=== PATIENT | female | born 1960 | race Caucasian/White ===

== ENCOUNTER 2017-12-29 13:42 | Emergency (ER) | payer SELFPAY ==
[2017-12-29] MEDS ORDERED: HYDROCODONE/APAP 5/325MG TABLET PO ONE (14:29)
[2017-12-29] MEDS ORDERED: CEFAZOLIN 1 Gram 1 GM/50 ML BAG IVPB ONE (15:32)
[2017-12-29] MEDS ORDERED: MORPHINE SULFATE 10 MG/ML VIAL IVP ONE (15:50)
[2017-12-29] MEDS ORDERED: Diph,Pert(Acell),Tet Vac 0.5 ML SYR IM ONE (17:56)
--- NOTE | 2017-12-29 17:59 | Emergency Department Record ---
History of Present Illness - General Chief Complaint: Laceration(s) Stated Complaint: LACERATION TO FINGERS ON RT HAND Time Seen by Provider: 12/29/17 14:22 Source: Patient Mode of Arrival: Ambulatory Limitations: No limitations - History of Present Illness Initial Commments: pt got hr hand caught in a metal machine avulsing and lacerating the 2nd and 3rd dips.. Onset/Timin -: Minutes(s) Extremity Location: Right: Hand Place: Work Context: Accidental Associated Symptoms: Pain Treatments Prior to Arrival: Bandage - Dustin Coma Scale Eye Response: (4) Open spontaneously Motor Response: (6) Obeys commands Verbal Response: (5) Oriented Dustin Total: 15 - Related Data Patient Tetanus UTD (within 5 yrs): No Previous Rx's Medication Instructions Recorded Cephalexin [Keflex] 500 mg PO TID #20 cap 12/29/17 Allergies Allergy/AdvReac Type Severity Reaction Status Date / Time duloxetine HCl Allergy ALTERED Verified 12/29/17 14:07 [From Cymbalta] MENTAL STATUS pregabalin [From Lyrica] Allergy ALTERED Verified 12/29/17 14:07 MENTAL STATUS Travel Screening - Travel/Exposure Within Last 30 Days Have you traveled within the last 30 days?: No - Travel/Exposure Within Last Year Have you traveled outside the [place] in the last year?: No - Additonal Travel Details Have you been exposed to anyone with a communicable illness?: No - Travel Symptoms Symptom Screening: None Review of Systems Reviewed: No additional complaints except as noted below Constitutional: Reports: As per HPI. Denies: Chills, Fever, Malaise, Night sweats, Weakness, Weight change Eyes: Reports: As per HPI. Denies: Eye discharge, Eye pain, Photophobia, Vision change ENT: Reports: As per HPI. Denies: Congestion, Dental pain, Ear pain, Epistaxis , Hearing loss, Throat pain Respiratory: Reports: As per HPI. Denies: Cough, Dyspnea, Hemoptysis, Stridor, Wheezes Cardiovascular: Reports: As per HPI. Denies: Arrhythmia, Chest pain, Dyspnea on exertion, Edema, Murmurs, Orthopnea, Palpitations, Paroxysmal nocturnal dyspnea, Rheumatic Fever, Syncope Endocrine: Reports: As per HPI. Denies: Fatigue, Heat or cold intolerance, Polydipsia, Polyuria Gastrointestinal: Reports: As per HPI. Denies: Abdominal pain, Constipation, Diarrhea, Hematemesis, Hematochezia, Melena, Nausea, Vomiting Genitourinary: Reports: As per HPI. Denies: Abnormal menses, Discharge, Dyspareunia, Dysuria, Frequency, Hematuria, Incontinence, Retention, Urgency Musculoskeletal: Reports: As per HPI. Denies: Arthralgia, Back pain, Gout, Joint swelling, Myalgia, Neck pain Skin: Reports: As per HPI. Denies: Bruising, Change in color, Change in hair/ nails, Lesions, Pruritus, Rash Neurological: Reports: As per HPI. Denies: Abnormal gait, Confusion, Headache, Numbness, Paresthesias, Seizure, Tingling, Tremors, Vertigo, Weakness Psychiatric: Reports: As per HPI. Denies: Anxiety, Auditory hallucinations, Depression, Homicidal thoughts, Suicidal thoughts, Visual hallucinations Hematological/Lymphatic: Reports: As per HPI. Denies: Anemia, Blood Clots, Easy bleeding, Easy bruising, Swollen glands Past Medical History - SOCIAL HISTORY Smoking Status: Former smoker Alcohol Use: None Drug Use: None - RESPIRATORY Hx Respiratory Disorders: Yes Hx Asthma: Yes Hx COPD: Yes - CARDIOVASCULAR Hx Cardio Disorders: No - NEURO Hx Neuro Disorders: No - GI Hx GI Disorders: Yes Hx Reflux: Yes - Hx Genitourinary Disorders: No - ENDOCRINE Hx Endocrine Disorders: Yes Hx Thyroid Disease: Yes - MUSCULOSKELETAL Hx Musculoskeletal Disorders: Yes Hx Arthritis: Yes (Rheumatoid) Hx Back Injury: Yes Comment:: Slipped Disc - PSYCH Hx Psych Problems: Yes Hx Anxiety: Yes - HEMATOLOGY/ONCOLOGY Hx Hematology/Oncology Disorders: No Family Medical History Any Significant Family History?: Yes Family Hx Comment (NOT TO BE USED IN PLACE OF ITEMS BELOW): Brain aneurysm with sister Hx Cancer: Father, Mother, Grandparents Hx Diabetes: Father, Grandparents Hx Heart Disease: Father Hx HTN: Father, Mother, Brother/Sister Hx Kidney Disease: Mother Physical Exam - General General Appearance: Alert, Oriented x3, Cooperative, Mild distress - Head Head exam: Normal inspection - Eye Eye exam: Normal appearance, PERRL, EOMI Pupils: Normal accommodation - ENT ENT exam: Normal exam, Mucous membranes moist, Normal external ear exam, Normal orophraynx Ear exam: Normal external inspection. negative: External canal tenderness Nasal Exam: Normal inspection. negative: Discharge, Sinus tenderness Mouth exam: Normal external inspection, Tongue normal Teeth exam: Normal inspection. negative: Dental caries Throat exam: Normal inspection. negative: Tonsillar erythema, Tonsillar exudate - Neck Neck exam: Normal inspection, Full ROM. negative: Tenderness - Respiratory Respiratory exam: Normal lung sounds bilaterally. negative: Respiratory distress - Cardiovascular Cardiovascular Exam: Regular rate, Normal rhythm, Normal heart sounds - GI/Abdominal GI/Abdominal exam: Soft, Normal bowel sounds. negative: Tenderness - Rectal Rectal exam: Deferred - exam: Deferred - Extremities Extremities exam: Normal inspection, Full ROM, Normal capillary refill. negative: Tenderness Image of Hand: 1 - u shaped laceration 2 - partial avulsion of tuft - Back Back exam: Reports: Normal inspection, Full ROM. Denies: Muscle spasm, Rash noted, Tenderness - Neurological Neurological exam: Alert, CN II-XII intact, Normal gait, Oriented X3 - Psychiatric Psychiatric exam: Normal affect, Normal mood - Skin Skin exam: Dry, Intact, Normal color, Warm Type of lesion: Laceration Distribution of rash: RUE Course Vital Signs 12/29/17 12/29/17 14:06 16:47 Temperature 98.3 F Pulse Rate 85 Pulse Rate [ 84 Pulse Ox Probe] Respiratory 18 18 Rate Blood Pressure 160/119 Blood Pressure 181/84 [Left Arm] Pulse Ox 98 99 - Reevaluation(s) Reevaluation #1: 12/29/17 19:11 d/w dr jordan Disposition Disposition: Discharge Clinical Impression: Laceration of finger Qualifiers: Encounter type: initial encounter Finger: index finger Damage to nail status: with damage Foreign body presence: without foreign body Laterality: right Qualified Code(s): S61.310A - Laceration without foreign body of right index finger with damage to nail, initial encounter Avulsion, finger tip Qualifiers: Encounter type: initial encounter Qualified Code(s): S61.209A - Unspecified open wound of unspecified finger without damage to nail, initial encounter Hypertension Qualifiers: Hypertension type: unspecified Qualified Code(s): I10 - Essential (primary) hypertension Disposition: Home, Self-Care Condition: (1) Good Instructions: Laceration (ED), Skin Avulsion (ED), Care For Your Stitches (ED) Additional Instructions: follow up with dr jordan on monday. return sooner if worse. keep elevated. recheck blood pressure in next 2 days and follow up with family doctor.regarding pressure Prescriptions: Cephalexin [Keflex] 500 mg PO TID #20 cap Referrals: PERRY JORDAN M.D. [MEDICAL DOCTOR] - Forms: Patient Portal Access Quality - Quality Measures Quality Measures: N/A - Blood Pressure Screening Does Patient Have Any of the Following: No Blood Pressure Classification: Hypertensive Reading Systolic Measurement: 160 Diastolic Measurement: 119 Screening for High Blood Pressure: < First Hypertensive BP, F/U Documented > [ G8950] First Hypertensive Follow-up Interventions: Follow-up with rescreen GT 1 day and LT 4 weeks. Laceration - Other - Time Out Informed consent:: Informed consent obtained Confirmed first & last name, , procedure, correct site?: Yes Start Date:: 12/29/17 Start Time:: 18:07 - Location Location of laceration:: Right Laceration digit detail:: 2nd Length of laceration:: 5 Length of laceration:: cm - Clean and Prep Laceration cleaning method:: Cleansed Laceration cleaning agent:: Normal Saline - Local Anesthetic Lidocaine used:: 1% Lidocaine dose:: 2 mL - Procedural Detail Tissue detail:: Crushed, Devitalized Skin suture pattern:: Interrupted Suture material/size:: 5-0: Prolene, Nylon Number of skin sutures:: 12 Neurovascular intact?: No (limited circulation to partially avulsed tuft) - Post Procedural Detail Complications:: Yes (as above, good approximation) Procedure Tolerated by Patient:: Well Laceration - Other - Time Out Informed consent:: Informed consent obtained Confirmed first & last name, , procedure, correct site?: Yes Start Date:: 12/29/17 Start Time:: 18:15 - Location Location of laceration:: Right Laceration located on:: Finger Laceration digit detail:: 3rd Length of laceration:: 10 (avulsion of tuft) Length of laceration:: cm - Clean and Prep Laceration cleaning method:: Cleansed, Copious Irrigation Laceration cleaning agent:: Normal Saline - Local Anesthetic Lidocaine used:: 1% Lidocaine dose:: 2 mL - Medication Medicated for procedure?: Yes Medication(s) administered:: Hydromorphine - Procedural Detail Tissue detail:: Crushed, Devitalized, Debridement Foreign body in the wound?: No Undermining was preformed?: No Stent applied?: No Neurovascular intact?: No - Post Procedural Detail Complications:: Yes (avulsion of tuft) Procedure Tolerated by Patient:: Well
[2017-12-29] MEDS ORDERED: THROMBIN/GELATIN FOAM HEMOSTAT (THROMBI-GEL) TP ONE (18:11)
--- NOTE | 2017-12-30 21:41 | RADIOLOGY REPORT ---
EXAM: HAND, RIGHT 3 VIEWS HISTORY: TRAUMATIC INJURY OF THE HAND, CAUGHT IN MACHINERY. TECHNIQUE: Three views of the right hand. COMPARISON: None. FINDINGS: Examination is limited by patient positioning, overlapping of the distal fingers, and superimposed wound dressing material. There is suggestion of osseous deformity involving the tuft of the long finger distal phalanx with overlying soft tissue injury/loss. Otherwise, no definite fracture or evidence of direct osseous injury. No dislocation. No definite radiopaque foreign body is detected. IMPRESSION: 1. LIMITED EXAMINATION, DETAILED ABOVE. 2. SUGGESTION OF OSSEOUS AND SOFT TISSUE INJURY INVOLVING THE TIP OF THE LONG FINGER. JOB NUMBER: [id number] MTDD
--- NOTE | 2017-12-31 10:52 | RADIOLOGY REPORT ---
DATE: 12/29/2017 at 1819 hours. EXAM: RIGHT HAND, THREE VIEWS. HISTORY: Laceration to fingertips. TECHNIQUE: Three views of the right hand. COMPARISON: Same-day three views of the right hand obtained at 1453 hours. FINDINGS: There is diffuse osteopenia. There is redemonstration of soft tissue deformity of the distal aspect of the third digit. On the lateral view, there is evidence of absence of a portion of the third distal phalanx tuft. No suspicious foreign body. On the lateral view there is mild cortical irregularity of the posterior margin of the second distal phalanx tuft. This may be chronic. Injury is less likely. Osteoarthritic changes again noted scattered throughout the hand, mild in degree. IMPRESSION: 1. SOFT TISSUE DEFORMITY OF THE TIP OF THE THIRD DIGIT. ON THE LATERAL VIEW THERE IS ABSENCE OF THE TIP OF THE THIRD DISTAL PHALANX TUFT. NO FOREIGN BODY. 2. FOCAL IRREGULARITY OF THE POSTERIOR CORTEX OF THE SECOND DISTAL PHALANX TUFT ON THE LATERAL VIEW. THIS MAY BE CHRONIC, THOUGH ACUTE INJURY CANNOT BE ENTIRELY EXCLUDED. JOB NUMBER: [id number] [facility]
== END 2017-12-29 19:28 | disposition home or self-care (01) ==
LOC: ER 13:42
DX: S61.310A Laceration without foreign body of right index finger with damage to nail, initial encounter (principal); S61.212A Laceration without foreign body of right middle finger without damage to nail, initial encounter; W31.89XA Contact with other specified machinery, initial encounter; Y92.63 Factory as the place of occurrence of the external cause; Y99.0 Civilian activity done for income or pay; J44.9 Chronic obstructive pulmonary disease, unspecified; I10 Essential (primary) hypertension; Z87.891 Personal history of nicotine dependence
CPT/HCPCS: 12055 ×2; 99284 ×2; 96372; 96365; 96375; 73130; J0690; J2270; 90715

== ENCOUNTER 2017-12-31 11:00 | Emergency (ER) | payer SELFPAY ==
[2017-12-31] MEDS ORDERED: ONDANSETRON HCL IV 4 MG/2 ML VIAL IM ONE (11:15)
[2017-12-31] MEDS ORDERED: HYDROMORPHONE HCL 2 MG/ML VIAL IM ONE (11:15)
--- NOTE | 2017-12-31 11:21 | Emergency Department Record ---
History of Present Illness - General Chief Complaint: Wound, check Stated Complaint: RE-CHECK FINGER Time Seen by Provider: 12/31/17 11:06 Source: Patient Mode of arrival: Ambulatory Limitations: No limitations - History of Present Illness Initial Comments: pt here for a recheck MD Complaint: Wound re-check Onset/Timin -: Days(s) Returns Today for: Wound recheck Symptoms Since Prior Visit: No new symptoms Associated Symptoms: None - Related Data Previous Rx's Medication Instructions Recorded Cephalexin [Keflex] 500 mg PO TID #20 cap 12/29/17 Hydrocodone/Acetaminophen [[place] 1 each PO Q6HR #10 tablet 12/31/17 5-325 Tablet] Allergies Allergy/AdvReac Type Severity Reaction Status Date / Time duloxetine HCl Allergy ALTERED Verified 12/29/17 14:07 [From Cymbalta] MENTAL STATUS pregabalin [From Lyrica] Allergy ALTERED Verified 12/29/17 14:07 MENTAL STATUS Travel Screening - Travel/Exposure Within Last 30 Days Have you traveled within the last 30 days?: No - Travel/Exposure Within Last Year Have you traveled outside the [place] in the last year?: No - Additonal Travel Details Have you been exposed to anyone with a communicable illness?: No - Travel Symptoms Symptom Screening: None Review of Systems Reviewed: No additional complaints except as noted below Constitutional: Reports: As per HPI. Denies: Chills, Fever, Malaise, Night sweats, Weakness, Weight change Eyes: Reports: As per HPI. Denies: Eye discharge, Eye pain, Photophobia, Vision change ENT: Reports: As per HPI. Denies: Congestion, Dental pain, Ear pain, Epistaxis , Hearing loss, Throat pain Respiratory: Reports: As per HPI. Denies: Cough, Dyspnea, Hemoptysis, Stridor, Wheezes Cardiovascular: Reports: As per HPI. Denies: Arrhythmia, Chest pain, Dyspnea on exertion, Edema, Murmurs, Orthopnea, Palpitations, Paroxysmal nocturnal dyspnea, Rheumatic Fever, Syncope Endocrine: Reports: As per HPI. Denies: Fatigue, Heat or cold intolerance, Polydipsia, Polyuria Gastrointestinal: Reports: As per HPI. Denies: Abdominal pain, Constipation, Diarrhea, Hematemesis, Hematochezia, Melena, Nausea, Vomiting Genitourinary: Reports: As per HPI. Denies: Abnormal menses, Discharge, Dyspareunia, Dysuria, Frequency, Hematuria, Incontinence, Retention, Urgency Musculoskeletal: Reports: As per HPI. Denies: Arthralgia, Back pain, Gout, Joint swelling, Myalgia, Neck pain Skin: Reports: As per HPI. Denies: Bruising, Change in color, Change in hair/ nails, Lesions, Pruritus, Rash Neurological: Reports: As per HPI. Denies: Abnormal gait, Confusion, Headache, Numbness, Paresthesias, Seizure, Tingling, Tremors, Vertigo, Weakness Psychiatric: Reports: As per HPI. Denies: Anxiety, Auditory hallucinations, Depression, Homicidal thoughts, Suicidal thoughts, Visual hallucinations Hematological/Lymphatic: Reports: As per HPI. Denies: Anemia, Blood Clots, Easy bleeding, Easy bruising, Swollen glands Past Medical History - SOCIAL HISTORY Smoking Status: Former smoker Alcohol Use: None Drug Use: None - RESPIRATORY Hx Respiratory Disorders: Yes Hx Asthma: Yes Hx COPD: Yes - CARDIOVASCULAR Hx Cardio Disorders: No - NEURO Hx Neuro Disorders: No - GI Hx GI Disorders: Yes Hx Reflux: Yes - Hx Genitourinary Disorders: No - ENDOCRINE Hx Endocrine Disorders: Yes Hx Thyroid Disease: Yes - MUSCULOSKELETAL Hx Musculoskeletal Disorders: Yes Hx Arthritis: Yes (Rheumatoid) Hx Back Injury: Yes Comment:: Slipped Disc - PSYCH Hx Psych Problems: Yes Hx Anxiety: Yes - HEMATOLOGY/ONCOLOGY Hx Hematology/Oncology Disorders: No Family Medical History Any Significant Family History?: No Family Hx Comment (NOT TO BE USED IN PLACE OF ITEMS BELOW): Brain aneurysm with sister Hx Cancer: Father, Mother, Grandparents Hx Diabetes: Father, Grandparents Hx Heart Disease: Father Hx HTN: Father, Mother, Brother/Sister Hx Kidney Disease: Mother Physical Exam - General General Appearance: Alert, Oriented x3, Cooperative, Mild distress - Head Head exam: Normal inspection - Eye Eye exam: Normal appearance, PERRL, EOMI Pupils: Normal accommodation - ENT ENT exam: Normal exam, Mucous membranes moist, Normal external ear exam, Normal orophraynx Ear exam: Normal external inspection. negative: External canal tenderness Nasal Exam: Normal inspection. negative: Discharge, Sinus tenderness Mouth exam: Normal external inspection, Tongue normal Teeth exam: Normal inspection. negative: Dental caries Throat exam: Normal inspection. negative: Tonsillar erythema, Tonsillar exudate - Neck Neck exam: Normal inspection, Full ROM. negative: Tenderness - Respiratory Respiratory exam: Normal lung sounds bilaterally. negative: Respiratory distress - Cardiovascular Cardiovascular Exam: Regular rate, Normal rhythm, Normal heart sounds - GI/Abdominal GI/Abdominal exam: Soft, Normal bowel sounds. negative: Tenderness - Rectal Rectal exam: Deferred - exam: Deferred - Extremities Extremities exam: Normal inspection, Full ROM, Normal capillary refill. negative: Tenderness - Back Back exam: Reports: Normal inspection, Full ROM. Denies: Muscle spasm, Rash noted, Tenderness - Neurological Neurological exam: Alert, CN II-XII intact, Normal gait, Oriented X3 - Psychiatric Psychiatric exam: Normal affect, Normal mood - Skin Skin exam: Dry, Intact, Normal color, Warm Type of lesion: Laceration, Other (laceration of index finger and avulsion of tuft of middle finger showing no signs of infection.) Course Vital Signs 12/31/17 11:03 Temperature 97.8 F Pulse Rate 76 Respiratory 20 Rate Blood Pressure 132/71 Pulse Ox 98 Disposition Disposition: Discharge Clinical Impression: Laceration re-check Disposition: Home, Self-Care Condition: (1) Good Instructions: Wound Healing and Your Diet (ED) Additional Instructions: follow up tomorrow with dr jordan Prescriptions: Hydrocodone/Acetaminophen [Brilliant 5-325 Tablet] 1 each PO Q6HR #10 tablet Referrals: PERRY JORDAN M.D. [MEDICAL DOCTOR] - Quality - Quality Measures Quality Measures: N/A - Blood Pressure Screening Does Patient Have Any of the Following: No Blood Pressure Classification: Pre-Hypertensive BP Reading Systolic Measurement: 132 Diastolic Measurement: 71 Screening for High Blood Pressure: < Pre-Hypertensive BP, F/U Documented > [ G8950] Pre-Hypertensive Follow-up Interventions: Follow-up with rescreen every year.
== END 2017-12-31 11:59 | disposition home or self-care (01) ==
LOC: ER 11:00
DX: Z48.00 Encounter for change or removal of nonsurgical wound dressing (principal); S61.310A Laceration without foreign body of right index finger with damage to nail, initial encounter; S61.212A Laceration without foreign body of right middle finger without damage to nail, initial encounter; J44.9 Chronic obstructive pulmonary disease, unspecified; Z87.891 Personal history of nicotine dependence; W31.89XA Contact with other specified machinery, initial encounter; Y92.63 Factory as the place of occurrence of the external cause; Y99.0 Civilian activity done for income or pay
CPT/HCPCS: 99283 ×2; 96372; J2405; J1170

== ENCOUNTER 2018-04-25 14:57 | Emergency (ER) | payer SELFPAY ==
--- NOTE | 2018-04-25 15:22 | Emergency Department Record ---
History of Present Illness - General Chief complaint: Cold Stated complaint: TARIQ Time Seen by Provider: 04/25/18 15:13 Source: Patient Mode of Arrival: Ambulatory Limitations: No limitations - History of Present Illness Initial comments: The patient is here due to a cough and congestion for 2-3 weeks. She does have intermittent sputum production with the cough. There is mild SOB like her asthma but she is out of her inhaller. There has been no fever, chills, CP, or back pain. MD complaint: Other Onset/Timin -: Week(s) - Related Data Previous Rx's Medication Instructions Recorded Hydrocodone/Acetaminophen [[place] 1 each PO Q6HR #10 tablet 12/31/17 5-325 Tablet] Albuterol Sulfate [Proair Hfa] 2 puff IH QID PRN #1 inhaler 04/25/18 Doxycycline Monohydrate [Mondoxyne 100 mg PO BID #14 capsule 04/25/18 Nl] Allergies Allergy/AdvReac Type Severity Reaction Status Date / Time duloxetine HCl Allergy ALTERED Verified 04/25/18 15:11 [From Cymbalta] MENTAL STATUS pregabalin [From Lyrica] Allergy ALTERED Verified 04/25/18 15:11 MENTAL STATUS Travel Screening - Travel/Exposure Within Last 30 Days Have you traveled within the last 30 days?: No - Travel/Exposure Within Last Year Have you traveled outside the [place] in the last year?: No - Additonal Travel Details Have you been exposed to anyone with a communicable illness?: No - Travel Symptoms Symptom Screening: None Review of Systems Constitutional: Denies: Chills, Fever Eyes: Denies: Eye discharge ENT: Denies: Congestion Respiratory: Denies: Cough, Dyspnea Past Medical History - SOCIAL HISTORY Smoking Status: Former smoker Alcohol Use: Rare Drug Use: None - RESPIRATORY Hx Respiratory Disorders: Yes Hx Asthma: Yes Hx COPD: Yes - CARDIOVASCULAR Hx Cardio Disorders: No - NEURO Hx Neuro Disorders: No - GI Hx GI Disorders: Yes Hx Reflux: Yes - Hx Genitourinary Disorders: No - ENDOCRINE Hx Endocrine Disorders: Yes Hx Thyroid Disease: Yes - MUSCULOSKELETAL Hx Musculoskeletal Disorders: Yes Hx Arthritis: Yes (Rheumatoid) Hx Back Injury: Yes Comment:: Slipped Disc - PSYCH Hx Psych Problems: Yes Hx Anxiety: Yes - HEMATOLOGY/ONCOLOGY Hx Hematology/Oncology Disorders: No Family Medical History Any Significant Family History?: Yes Family Hx Comment (NOT TO BE USED IN PLACE OF ITEMS BELOW): Brain aneurysm with sister Hx Cancer: Father, Mother, Grandparents Hx Diabetes: Father, Grandparents Hx Heart Disease: Father Hx HTN: Father, Mother, Brother/Sister Hx Kidney Disease: Mother Physical Exam - General General Appearance: Alert, Oriented x3, Cooperative, No acute distress - Head Head exam: Atraumatic, Normocephalic, Normal inspection - Eye Eye exam: Normal appearance, PERRL, EOMI - ENT Throat exam: Normal inspection. negative: Tonsillar erythema, Tonsillar exudate - Neck Neck exam: Normal inspection, Full ROM. negative: Tenderness - Respiratory Respiratory exam: Normal lung sounds bilaterally. negative: Accessory muscle use, Chest wall tenderness, Rales, Respiratory distress, Rhonchi, Stridor - Cardiovascular Cardiovascular Exam: Regular rate, Normal rhythm, Normal heart sounds - GI/Abdominal GI/Abdominal exam: Soft, Normal bowel sounds. negative: Tenderness - Neurological Neurological exam: Alert, Normal gait. negative: Abnormal gait, Motor sensory deficit Course Vital Signs 04/25/18 15:13 Temperature 97.8 F Pulse Rate 71 Respiratory 20 Rate Blood Pressure 142/65 Pulse Ox 96 - Reevaluation(s) Reevaluation #1: I did explain to the patient the need for an inhaller and oral Abx. She is to see her PCP if not better in 4-5 days. 04/25/18 15:24 Disposition Disposition: Discharge Clinical Impression: Bronchitis Disposition: Home, Self-Care Condition: (2) Stable Instructions: Acute Bronchitis (ED) Additional Instructions: Please take the Doxycycline and Albuterol as directed. Please see your family doctor next week if not better. Return to the ER for any worsening cough, any fever, SOB or TARIQ. Prescriptions: Albuterol Sulfate [Proair Hfa] 2 puff IH QID PRN #1 inhaler PRN Reason: Cough And Difficulty Breathing Doxycycline Monohydrate [Mondoxyne Nl] 100 mg PO BID #14 capsule Forms: Patient Portal Access Time of Disposition: 15:22 Quality - Quality Measures Quality Measures: N/A - Blood Pressure Screening View Details: Yes Does Patient Have Any of the Following: No Blood Pressure Classification: Hypertensive Reading Systolic Measurement: 142 Diastolic Measurement: 65 Screening for High Blood Pressure: < Pre-Hypertensive BP, F/U Documented > [ G8950] Pre-Hypertensive Follow-up Interventions: Referral to alternative/primary care provider.
== END 2018-04-25 15:27 | disposition home or self-care (01) ==
LOC: ER 14:57
DX: J20.9 Acute bronchitis, unspecified (principal); R06.02 Shortness of breath
CPT/HCPCS: 99282

== ENCOUNTER 2018-05-15 14:56 | Emergency (ER) | payer MEDICAID ==
--- NOTE | 2018-05-15 15:30 | Emergency Department Record ---
History of Present Illness - General Chief complaint: Dental Stated complaint: ABCESS TOOTH Time Seen by Provider: 05/15/18 15:25 Source: Patient Mode of Arrival: Ambulatory Limitations: No limitations - History of Present Illness Initial comments: Pt with recurrent "abscess" to tooth. Has never had a dentist due to lack of insurance. No fever, no difficult swallowing. No DM. Several missing teeth. Mild swelling to left lower jaw. MD complaint: Tooth pain Onset/Timin -: Days(s) Location: Tooth # Severity: Moderate Quality: Aching, Burning Consistency: Constant - Related Data Previous Rx's Medication Instructions Recorded Hydrocodone/Acetaminophen [[place] 1 each PO Q6HR #10 tablet 12/31/17 5-325 Tablet] Albuterol Sulfate [Proair Hfa] 2 puff IH QID PRN #1 inhaler 04/25/18 Ibuprofen [Motrin] 800 mg PO Q8H PRN 6 Days #40 tab 05/15/18 Penicillin V Potassium 1,000 mg PO BID 10 Days #40 tablet 05/15/18 Allergies Allergy/AdvReac Type Severity Reaction Status Date / Time duloxetine HCl Allergy ALTERED Verified 05/15/18 15:05 [From Cymbalta] MENTAL STATUS pregabalin [From Lyrica] Allergy ALTERED Verified 05/15/18 15:05 MENTAL STATUS Travel Screening - Travel/Exposure Within Last 30 Days Have you traveled within the last 30 days?: No - Travel/Exposure Within Last Year Have you traveled outside the [place] in the last year?: No - Additonal Travel Details Have you been exposed to anyone with a communicable illness?: No - Travel Symptoms Symptom Screening: None Review of Systems Constitutional: Denies: Chills, Fever, Night sweats, Weakness Eyes: Denies: Eye discharge, Photophobia ENT: Reports: As per HPI, Dental pain. Denies: Congestion, Ear pain Respiratory: Denies: Cough, Dyspnea, Hemoptysis Cardiovascular: Denies: Arrhythmia, Chest pain Endocrine: Denies: Fatigue Gastrointestinal: Denies: Abdominal pain Musculoskeletal: Denies: Arthralgia Skin: Denies: Bruising, Rash Neurological: Denies: Abnormal gait, Headache, Tingling Psychiatric: Denies: Anxiety Hematological/Lymphatic: Denies: Anemia Past Medical History - SOCIAL HISTORY Smoking Status: Former smoker Alcohol Use: None Drug Use: None - RESPIRATORY Hx Respiratory Disorders: Yes Hx Asthma: Yes Hx COPD: Yes - CARDIOVASCULAR Hx Cardio Disorders: No - NEURO Hx Neuro Disorders: No - GI Hx GI Disorders: Yes Hx Reflux: Yes - Hx Genitourinary Disorders: No - ENDOCRINE Hx Endocrine Disorders: Yes Hx Thyroid Disease: Yes - MUSCULOSKELETAL Hx Musculoskeletal Disorders: Yes Hx Arthritis: Yes (Rheumatoid) Hx Back Injury: Yes Comment:: Slipped Disc - PSYCH Hx Psych Problems: Yes Hx Anxiety: Yes - HEMATOLOGY/ONCOLOGY Hx Hematology/Oncology Disorders: No Family Medical History Any Significant Family History?: Yes Family Hx Comment (NOT TO BE USED IN PLACE OF ITEMS BELOW): Brain aneurysm with sister Hx Cancer: Father, Mother, Grandparents Hx Diabetes: Father, Grandparents Hx Heart Disease: Father Hx HTN: Father, Mother, Brother/Sister Hx Kidney Disease: Mother Physical Exam - General General Appearance: Alert, Oriented x3, Cooperative, Mild distress - Head Head exam: Atraumatic - Eye Eye exam: Normal appearance, PERRL - ENT Ear exam: Normal external inspection. negative: External canal tenderness Nasal Exam: Normal inspection. negative: Discharge, Sinus tenderness Mouth exam: Tongue normal. negative: Drooling, Laceration, Muffled voice, Tongue elevation Teeth exam: Dental caries (multiple missing and fractured teeth. Lower gums at #20/21 with erythema and swelling/sullness. No drainage. ) Throat exam: Normal inspection - Neck Neck exam: Normal inspection, Full ROM. negative: Lymphadenopathy, Meningismus , Tenderness - Respiratory Respiratory exam: Normal lung sounds bilaterally. negative: Rhonchi, Wheezes - Cardiovascular Cardiovascular Exam: Regular rate, Normal rhythm. negative: Tachycardia - GI/Abdominal GI/Abdominal exam: Soft, Normal bowel sounds. negative: Tenderness - Extremities Extremities exam: Normal inspection - Back Back exam: Reports: Normal inspection - Neurological Neurological exam: Alert, Normal gait, Oriented X3 - Psychiatric Psychiatric exam: Normal affect - Skin Skin exam: Normal color Course Vital Signs 05/15/18 15:00 Temperature 97.6 F Pulse Rate 71 Respiratory 18 Rate Blood Pressure 166/93 Pulse Ox 98 - Reevaluation(s) Reevaluation #1: 05/15/18 15:36 seen and exam. Plan for AB and dds referral. Disposition Disposition: Discharge Clinical Impression: Dental abscess Disposition: Home, Self-Care Condition: (1) Good Instructions: Dental Abscess (ED), Warm Compress or Soak (ED) Additional Instructions: Call Medicaid dentist for appointment. Prescriptions: Ibuprofen [Motrin] 800 mg PO Q8H PRN 6 Days #40 tab PRN Reason: Pain - Moderate (5-7) Penicillin V Potassium 1,000 mg PO BID 10 Days #40 tablet Quality - Quality Measures Quality Measures: N/A - Blood Pressure Screening Does Patient Have Any of the Following: No Blood Pressure Classification: Hypertensive Reading Systolic Measurement: 166 Diastolic Measurement: 93 Screening for High Blood Pressure: < Pre-Hypertensive BP, F/U Documented > [ G8950] Pre-Hypertensive Follow-up Interventions: Follow-up with rescreen every year.
== END 2018-05-15 15:42 | disposition home or self-care (01) ==
LOC: ER 14:56
DX: K04.7 Periapical abscess without sinus (principal); Z87.891 Personal history of nicotine dependence
CPT/HCPCS: 99282

== ENCOUNTER 2019-03-24 15:09 | Emergency (ER) | payer MEDICAID ==
--- NOTE | 2019-03-24 16:30 | Emergency Department Record ---
History of Present Illness - General Chief complaint: Dental Stated complaint: DENTAL PAIN Time Seen by Provider: 03/24/19 16:25 Source: Patient, RN notes reviewed Mode of Arrival: Ambulatory - History of Present Illness Initial comments: dental pain and getting her teeth removed in three weeks and wants antibiotics Onset/Timin -: Days(s) Severity: Severe Severity scale (1-10): 10 Quality: Sharp Consistency: Constant Improves with: None Worsens with: None Context- Dental: History of dental caries, Poor dental care - Related Data Previous Rx's Medication Instructions Recorded Hydrocodone/Acetaminophen [[place] 1 each PO Q6HR #10 tablet 12/31/17 5-325 Tablet] Amoxicillin/Potassium Clav 1 each PO TID #30 tablet 03/24/19 [Augmentin 500-125 Tablet] Allergies Allergy/AdvReac Type Severity Reaction Status Date / Time duloxetine HCl Allergy ALTERED Verified 01/26/19 12:54 [From Cymbalta] MENTAL STATUS pregabalin [From Lyrica] Allergy ALTERED Verified 01/26/19 12:54 MENTAL STATUS Travel Screening - Travel/Exposure Within Last 30 Days Have you traveled within the last 30 days?: No Review of Systems Reviewed: No additional complaints except as noted below Constitutional: Reports: As per HPI. Denies: Chills, Fever, Malaise, Night sweats, Weakness, Weight change Eyes: Reports: As per HPI. Denies: Eye discharge, Eye pain, Photophobia, Vision change ENT: Reports: As per HPI, Dental pain. Denies: Congestion, Ear pain, Epistaxis, Hearing loss, Throat pain Respiratory: Reports: As per HPI. Denies: Cough, Dyspnea, Hemoptysis, Stridor, Wheezes Cardiovascular: Reports: As per HPI. Denies: Arrhythmia, Chest pain, Dyspnea on exertion, Edema, Murmurs, Orthopnea, Palpitations, Paroxysmal nocturnal dyspnea, Rheumatic Fever, Syncope Endocrine: Reports: As per HPI. Denies: Fatigue, Heat or cold intolerance, Polydipsia, Polyuria Gastrointestinal: Reports: As per HPI. Denies: Abdominal pain, Constipation, Diarrhea, Hematemesis, Hematochezia, Melena, Nausea, Vomiting Genitourinary: Reports: As per HPI. Denies: Abnormal menses, Discharge, Dyspareunia, Dysuria, Frequency, Hematuria, Incontinence, Retention, Urgency Musculoskeletal: Reports: As per HPI. Denies: Arthralgia, Back pain, Gout, Joint swelling, Myalgia, Neck pain Skin: Reports: As per HPI. Denies: Bruising, Change in color, Change in hair/nails, Lesions, Pruritus, Rash Neurological: Reports: As per HPI. Denies: Abnormal gait, Confusion, Headache, Numbness, Paresthesias, Seizure, Tingling, Tremors, Vertigo, Weakness Psychiatric: Reports: As per HPI. Denies: Anxiety, Auditory hallucinations, Depression, Homicidal thoughts, Suicidal thoughts, Visual hallucinations Hematological/Lymphatic: Reports: As per HPI. Denies: Anemia, Blood Clots, Easy bleeding, Easy bruising, Swollen glands Past Medical History - SOCIAL HISTORY Smoking Status: Former smoker - RESPIRATORY Hx Respiratory Disorders: Yes Hx Asthma: Yes Hx COPD: Yes - CARDIOVASCULAR Hx Cardio Disorders: No - NEURO Hx Neuro Disorders: No - GI Hx GI Disorders: Yes Hx Reflux: Yes - Hx Genitourinary Disorders: No - ENDOCRINE Hx Endocrine Disorders: Yes Hx Thyroid Disease: Yes - MUSCULOSKELETAL Hx Musculoskeletal Disorders: Yes Hx Arthritis: Yes (Rheumatoid) Hx Back Injury: Yes Comment:: Slipped Disc - PSYCH Hx Psych Problems: Yes Hx Anxiety: Yes - HEMATOLOGY/ONCOLOGY Hx Hematology/Oncology Disorders: No Family Medical History Any Significant Family History?: Yes Family Hx Comment (NOT TO BE USED IN PLACE OF ITEMS BELOW): Brain aneurysm with sister Hx Cancer: Father, Mother, Grandparents Hx Diabetes: Father, Grandparents Hx Heart Disease: Father Hx HTN: Father, Mother, Brother/Sister Hx Kidney Disease: Mother Physical Exam - General General Appearance: Alert, Oriented x3, Cooperative, No acute distress - Head Head exam: Normal inspection - Eye Eye exam: Normal appearance, PERRL Pupils: Normal accommodation - ENT ENT exam: Normal exam, Mucous membranes moist, Normal external ear exam, Normal orophraynx, TM's normal bilaterally Ear exam: Normal external inspection. negative: External canal tenderness Nasal Exam: Normal inspection. negative: Discharge, Sinus tenderness Mouth exam: Normal external inspection, Tongue normal Teeth exam: Dental caries, Gingival enlargement Throat exam: Normal inspection. negative: Tonsillar erythema, Tonsillar exudate - Neck Neck exam: Normal inspection, Full ROM. negative: Tenderness - Respiratory Respiratory exam: Normal lung sounds bilaterally. negative: Respiratory distress - Cardiovascular Cardiovascular Exam: Regular rate, Normal rhythm, Normal heart sounds - GI/Abdominal GI/Abdominal exam: Soft, Normal bowel sounds. negative: Tenderness - Rectal Rectal exam: Deferred - exam: Deferred - Extremities Extremities exam: Normal inspection, Full ROM, Normal capillary refill. negative: Tenderness - Back Back exam: Reports: Normal inspection, Full ROM. Denies: Muscle spasm, Rash noted, Tenderness - Neurological Neurological exam: Alert, Normal gait, Oriented X3, Reflexes normal - Psychiatric Psychiatric exam: Normal affect, Normal mood - Skin Skin exam: Dry, Intact, Normal color, Warm Course Vital Signs 03/24/19 15:29 Temperature 97.7 F Pulse Rate [ 78 Pulse Ox Probe] Respiratory 20 Rate Blood Pressure 190/91 [Left Arm] Pulse Ox 98 Disposition Clinical Impression: Pain, dental, Dental infection Disposition: Home, Self-Care Condition: (1) Good Instructions: Dental Abscess (ED) Additional Instructions: follow up with dentist in one week Prescriptions: Amoxicillin/Potassium Clav [Augmentin 500-125 Tablet] 1 each PO TID #30 tablet Time of Disposition: 16:30 Quality - Quality Measures Quality Measures: N/A - Blood Pressure Screening Does Patient Have Any of the Following: No, Active Dx of HTN Blood Pressure Classification: Hypertensive Reading Systolic Measurement: 190 Diastolic Measurement: 91 Screening for High Blood Pressure: Patient Exclusion, Hx of HTN [G9744]
== END 2019-03-24 16:30 | disposition home or self-care (01) ==
LOC: ER 15:09
DX: K04.7 Periapical abscess without sinus (principal); I10 Essential (primary) hypertension; Z87.891 Personal history of nicotine dependence
CPT/HCPCS: 99283

== ENCOUNTER 2019-03-25 09:15 | Emergency (ER) | payer MEDICAID ==
[2019-03-25] MEDS ORDERED: AMPICILLIN SODIUM/SULBACTAM NA 3 G in 0.9 % SODIUM CHLORIDE 100ML 100 ML IVPB ONE (09:34)
--- NOTE | 2019-03-25 09:39 | Emergency Department Record ---
History of Present Illness - General Chief complaint: ENT Stated complaint: TOOTH ABSCESS WORSE Time Seen by Provider: 03/25/19 09:17 Source: Patient Mode of Arrival: Ambulatory Limitations: No limitations - History of Present Illness Initial comments: 59 yo female presents with an infection at tooth #26 and right lower jaw pain. She has a dental appointment in three weeks to have all teeth removed. The current symptoms started yesterday. No neck pain, trouble swallowing or eating. She has had one day of Augmentin. She is slightly worse. No fever. Her dentist is in [place]. complaint: Tooth pain Onset/Timin -: Days(s) Location: Tooth # (26) Severity: Moderate Severity scale (1-10): >10 Quality: Aching Consistency: Constant Context- Dental: History of dental caries - Related Data Previous Rx's Medication Instructions Recorded Hydrocodone/Acetaminophen [[place] 1 each PO Q6HR #10 tablet 12/31/17 5-325 Tablet] Amoxicillin/Potassium Clav 1 each PO TID #30 tablet 03/24/19 [Augmentin 500-125 Tablet] Allergies Allergy/AdvReac Type Severity Reaction Status Date / Time duloxetine HCl Allergy ALTERED Verified 03/25/19 09:24 [From Cymbalta] MENTAL STATUS pregabalin [From Lyrica] Allergy ALTERED Verified 03/25/19 09:24 MENTAL STATUS Travel Screening - Travel/Exposure Within Last 30 Days Have you traveled within the last 30 days?: No - Travel/Exposure Within Last Year Have you traveled outside the [place] in the last year?: No - Additonal Travel Details Have you been exposed to anyone with a communicable illness?: No - Travel Symptoms Symptom Screening: None Review of Systems Constitutional: Denies: Chills, Fever, Malaise, Weakness Eyes: Denies: Eye discharge, Eye pain, Photophobia, Vision change ENT: Reports: As per HPI, Dental pain. Denies: Congestion, Ear pain, Throat pain Respiratory: Denies: Cough Cardiovascular: Denies: Chest pain, Palpitations, Syncope Gastrointestinal: Denies: Abdominal pain, Diarrhea, Nausea, Vomiting Genitourinary: Denies: Dysuria, Urgency Musculoskeletal: Denies: Arthralgia, Back pain, Myalgia Skin: Denies: Bruising, Change in color, Rash Neurological: Denies: Headache Psychiatric: Denies: Anxiety Hematological/Lymphatic: Denies: Easy bruising Past Medical History - SOCIAL HISTORY Smoking Status: Former smoker Alcohol Use: None Drug Use: None - RESPIRATORY Hx Respiratory Disorders: Yes Hx Asthma: Yes Hx COPD: Yes - CARDIOVASCULAR Hx Cardio Disorders: No - NEURO Hx Neuro Disorders: No - GI Hx GI Disorders: Yes Hx Reflux: Yes - Hx Genitourinary Disorders: No - ENDOCRINE Hx Endocrine Disorders: Yes Hx Thyroid Disease: Yes - MUSCULOSKELETAL Hx Musculoskeletal Disorders: Yes Hx Arthritis: Yes (Rheumatoid) Hx Back Injury: Yes Comment:: Slipped Disc - PSYCH Hx Psych Problems: Yes Hx Anxiety: Yes - HEMATOLOGY/ONCOLOGY Hx Hematology/Oncology Disorders: No Family Medical History Any Significant Family History?: Yes Family Hx Comment (NOT TO BE USED IN PLACE OF ITEMS BELOW): Brain aneurysm with sister Hx Cancer: Father, Mother, Grandparents Hx Diabetes: Father, Grandparents Hx Heart Disease: Father Hx HTN: Father, Mother, Brother/Sister Hx Kidney Disease: Mother Physical Exam - General General Appearance: Alert, Oriented x3, Cooperative, No acute distress Limitations: No limitations - Head Head exam: Atraumatic, Normal inspection Image of Chin: 1 - mild erythema and mild swelling - Eye Eye exam: Normal appearance, PERRL. negative: Conjunctival injection, Scleral icterus - ENT ENT exam: Normal exam, Mucous membranes moist. negative: Mucous membranes dry Ear exam: Normal external inspection Nasal Exam: Normal inspection Mouth exam: Normal external inspection Teeth exam: Dental caries (chronic decay with erosion of #26, mild erythema, no visible fluctuance or abscess) Throat exam: Normal inspection, Tonsillar erythema. negative: Tonsillomegaly - Neck Neck exam: Normal inspection, Full ROM, Other (supple soft neck without involvement). negative: Lymphadenopathy, Tenderness - Respiratory Respiratory exam: Normal lung sounds bilaterally. negative: Respiratory distress - Cardiovascular Cardiovascular Exam: Regular rate, Normal rhythm, Normal heart sounds - Rectal Rectal exam: negative: Deferred - exam: negative: Deferred - Extremities Extremities exam: Normal inspection - Neurological Neurological exam: Alert, Oriented X3 - Psychiatric Psychiatric exam: Normal affect, Normal mood - Skin Skin exam: Dry, Intact, Normal color, Warm Course Vital Signs 03/25/19 09:18 Temperature 98.4 F Pulse Rate 74 Respiratory 18 Rate Blood Pressure 150/78 Pulse Ox 97 - Reevaluation(s) Reevaluation #1: 03/25/19 09:38 Mild local swelling, no throat or neck involvement Plan for a dose of Unasyn She can then continue her Augmentin We discussed that she should call her dentist for a close follow up visit We discussed reasons to immediately return to the ED as well Disposition Disposition: Discharge Clinical Impression: Dental infection Disposition: Home, Self-Care Condition: (1) Good Instructions: Dental Abscess (ED) Additional Instructions: Take the antibiotics as prescribed Return immediately if worse Call your dentist today for close follow up and recheck of the infected tooth Quality - Quality Measures Quality Measures: N/A - Blood Pressure Screening Does Patient Have Any of the Following: Active Dx of HTN Blood Pressure Classification: Hypertensive Reading Systolic Measurement: 150 Diastolic Measurement: 78 Screening for High Blood Pressure: Patient Exclusion, Hx of HTN [G9744]
[2019-03-25] MEDS ORDERED: KETOROLAC 30 MG/ML VIAL IVP ONE (10:11)
== END 2019-03-25 10:47 | disposition home or self-care (01) ==
LOC: ER 09:15
DX: K04.7 Periapical abscess without sinus (principal); Z87.891 Personal history of nicotine dependence; I10 Essential (primary) hypertension
CPT/HCPCS: 96365; 96375; 99284; J0295; J1885

== ENCOUNTER 2019-06-28 09:41 | Emergency (ER) | payer MEDICAID ==
--- NOTE | 2019-06-28 10:06 | Emergency Department Record ---
History of Present Illness - General Chief complaint: Toothache Stated complaint: TOOTH ABSCESS Time Seen by Provider: 06/28/19 09:48 Source: Patient Mode of Arrival: Ambulatory Limitations: No limitations - History of Present Illness Initial comments: pt c/o dental pain. she is scheduled to get her teeth pulled in the near future. she only wants antibiotics. she was supposed to get them pulled in february but had a lapse of her insurance. MD complaint: Tooth pain Onset/Timin -: Hour(s) Location: Throat Severity scale (1-10): 10 Quality: Aching Consistency: Constant Improves with: None Worsens with: None Context- Dental: History of dental caries, Poor dental care Associated Symptoms: Toothache - Related Data Previous Rx's Medication Instructions Recorded Hydrocodone/Acetaminophen [[place] 1 each PO Q6HR #10 tablet 12/31/17 5-325 Tablet] Amoxicillin 500 mg PO Q8HR #30 capsule 06/28/19 Allergies Allergy/AdvReac Type Severity Reaction Status Date / Time duloxetine HCl Allergy ALTERED Verified 03/25/19 09:24 [From Cymbalta] MENTAL STATUS pregabalin [From Lyrica] Allergy ALTERED Verified 03/25/19 09:24 MENTAL STATUS Travel Screening - Travel/Exposure Within Last 30 Days Have you traveled within the last 30 days?: No Review of Systems Reviewed: No additional complaints except as noted below Constitutional: Reports: As per HPI. Denies: Chills, Fever, Malaise, Night sweats, Weakness, Weight change Eyes: Reports: As per HPI. Denies: Eye discharge, Eye pain, Photophobia, Vision change ENT: Reports: As per HPI, Dental pain. Denies: Congestion, Ear pain, Epistaxis, Hearing loss, Throat pain Respiratory: Reports: As per HPI. Denies: Cough, Dyspnea, Hemoptysis, Stridor, Wheezes Cardiovascular: Reports: As per HPI. Denies: Arrhythmia, Chest pain, Dyspnea on exertion, Edema, Murmurs, Orthopnea, Palpitations, Paroxysmal nocturnal dyspnea, Rheumatic Fever, Syncope Endocrine: Reports: As per HPI. Denies: Fatigue, Heat or cold intolerance, Polydipsia, Polyuria Gastrointestinal: Reports: As per HPI. Denies: Abdominal pain, Constipation, Diarrhea, Hematemesis, Hematochezia, Melena, Nausea, Vomiting Genitourinary: Reports: As per HPI. Denies: Abnormal menses, Discharge, Dyspareunia, Dysuria, Frequency, Hematuria, Incontinence, Retention, Urgency Musculoskeletal: Reports: As per HPI. Denies: Arthralgia, Back pain, Gout, Joint swelling, Myalgia, Neck pain Skin: Reports: As per HPI. Denies: Bruising, Change in color, Change in hair/nails, Lesions, Pruritus, Rash Neurological: Reports: As per HPI. Denies: Abnormal gait, Confusion, Headache, Numbness, Paresthesias, Seizure, Tingling, Tremors, Vertigo, Weakness Psychiatric: Reports: As per HPI. Denies: Anxiety, Auditory hallucinations, Depression, Homicidal thoughts, Suicidal thoughts, Visual hallucinations Hematological/Lymphatic: Reports: As per HPI. Denies: Anemia, Blood Clots, Easy bleeding, Easy bruising, Swollen glands Past Medical History - SOCIAL HISTORY Smoking Status: Former smoker - RESPIRATORY Hx Respiratory Disorders: Yes Hx Asthma: Yes Hx COPD: Yes - CARDIOVASCULAR Hx Cardio Disorders: No - NEURO Hx Neuro Disorders: No - GI Hx GI Disorders: Yes Hx Reflux: Yes - Hx Genitourinary Disorders: No - ENDOCRINE Hx Endocrine Disorders: Yes Hx Thyroid Disease: Yes - MUSCULOSKELETAL Hx Musculoskeletal Disorders: Yes Hx Arthritis: Yes (Rheumatoid) Hx Back Injury: Yes Comment:: Slipped Disc - PSYCH Hx Psych Problems: Yes Hx Anxiety: Yes - HEMATOLOGY/ONCOLOGY Hx Hematology/Oncology Disorders: No Family Medical History Any Significant Family History?: Yes Family Hx Comment (NOT TO BE USED IN PLACE OF ITEMS BELOW): Brain aneurysm with sister Hx Cancer: Father, Mother, Grandparents Hx Diabetes: Father, Grandparents Hx Heart Disease: Father Hx HTN: Father, Mother, Brother/Sister Hx Kidney Disease: Mother Physical Exam - General General Appearance: Alert, Oriented x3, Cooperative, No acute distress - Head Head exam: Normal inspection - Eye Eye exam: Normal appearance, PERRL, EOMI Pupils: Normal accommodation - ENT ENT exam: Normal exam, Mucous membranes moist, Normal external ear exam, Normal orophraynx, TM's normal bilaterally Ear exam: Normal external inspection. negative: External canal tenderness Nasal Exam: Normal inspection. negative: Discharge, Sinus tenderness Mouth exam: Normal external inspection, Tongue normal Teeth exam: Dental caries, Dental tenderness # Throat exam: Normal inspection. negative: Tonsillar erythema, Tonsillar exudate Image of Mouth/Teeth: 1 - tender w swelling - Neck Neck exam: Normal inspection, Full ROM. negative: Tenderness - Respiratory Respiratory exam: Normal lung sounds bilaterally. negative: Respiratory distress - Cardiovascular Cardiovascular Exam: Regular rate, Normal rhythm, Normal heart sounds - GI/Abdominal GI/Abdominal exam: Soft, Normal bowel sounds. negative: Tenderness - Rectal Rectal exam: Deferred - exam: Deferred - Extremities Extremities exam: Normal inspection, Full ROM, Normal capillary refill. negative: Tenderness - Back Back exam: Reports: Normal inspection, Full ROM. Denies: Muscle spasm, Rash noted, Tenderness - Neurological Neurological exam: Alert, CN II-XII intact, Normal gait, Oriented X3 - Psychiatric Psychiatric exam: Normal affect, Normal mood - Skin Skin exam: Dry, Intact, Normal color, Warm Course Vital Signs 06/28/19 09:43 Temperature 97.7 F Pulse Rate 84 Respiratory 20 Rate Blood Pressure 142/89 Pulse Ox 96 Disposition Disposition: Discharge Clinical Impression: Dental abscess Disposition: Home, Self-Care Condition: (1) Good Instructions: Dental Abscess (ED), Toothache (ED) Additional Instructions: follow up with a dentist winter, return sooner if worse. sleep elevated. Prescriptions: Amoxicillin 500 mg PO Q8HR #30 capsule Quality - Quality Measures Quality Measures: N/A - Blood Pressure Screening Does Patient Have Any of the Following: No Blood Pressure Classification: Pre-Hypertensive BP Reading Systolic Measurement: 142 Diastolic Measurement: 89 Screening for High Blood Pressure: < Pre-Hypertensive BP, F/U Documented > [G8950] Pre-Hypertensive Follow-up Interventions: Follow-up with rescreen every year.
== END 2019-06-28 10:23 | disposition home or self-care (01) ==
LOC: ER 09:41
DX: K04.7 Periapical abscess without sinus (principal); J44.9 Chronic obstructive pulmonary disease, unspecified; Z87.891 Personal history of nicotine dependence
CPT/HCPCS: 99283